=== PATIENT | female | born 1985 | race American Indian/Alaskan Native ===

== ENCOUNTER 2017-04-08 20:15 | Emergency (ER) | payer SELFPAY ==
[2017-04-08 22:33] LABS: Bilirubin,Urine NEG (Negative); Blood,Urine SM (Negative); Color,Urine Yellow (Yellow); Granular Casts,Urine 5 /LPF; Mucus,Urine FEW /HPF; Nitrite,Urine NEG (Negative); Urobilinogen,Urine < 2.0 mg/dL (<2.0)
[2017-04-08 22:41] LABS: HCG Qualitative,Urine Negative (Negative)
--- NOTE | 2017-04-09 03:11 | XRay Report ---
FINAL REPORT EXAM: XR CHEST ROUTINE 2V HISTORY: cough, congestion, rib pain TECHNIQUE: PA and lateral views of the chest were submitted. FINDINGS: The heart size and mediastinum appear normal. The lungs are clear. Pleural fluid is not seen. The bones and soft tissues do not show any acute changes. IMPRESSION: No active chest disease.
--- NOTE | 2017-04-09 05:51 | Emergency Department Report ---
Minor Respiratory - HPI Chief Complaint: Upper Respiratory Infection Stated Complaint: FLU SX Time Seen by Provider: 04/09/17 05:24 Duration: 4 Days Severity: mild Minor Respiratory: Yes Rhinorrhea, Yes Sore Throat, Yes Able to Tolerate Fluids , Yes Cough, Yes Sick Contacts, Yes Fever (102.0 yesterday per patient), No Ear Pain, No Hemoptysis, No Chest Pain, No Shortness of Breath Other History: This is a 31 y.o. female that presents with cough, congestion, nausea, vomiting, diarrhea, and muscle aches for 4 days. Patient states nausea, vomiting, and diarrhea stopped yesterday. 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 She took her temperature yesterday and it was 102.0, which prompted her to come for evaluation. She is taking dayquil and tylenol for symptom with some improvement. She is a former smoker. She quit smoking 3 months ago and felt great until 4 days ago. She denies headache, chest pain, SOB , and weight loss. ED Review of Systems ROS: Stated complaint: FLU SX Other details as noted in HPI Constitutional: see HPI, chills, fever, malaise. denies: diaphoresis, weakness ENT: throat pain, congestion. denies: ear pain, dental pain, hearing loss, epistaxis Respiratory: no symptoms reported, cough. denies: orthopnea, shortness of breath, SOB with exertion, SOB at rest, stridor, wheezing Cardiovascular: denies: chest pain, palpitations, syncope Gastrointestinal: as per HPI. denies: abdominal pain, vomiting, diarrhea Neurological: denies: headache, weakness, paresthesias ED Past Medical Hx - Past Medical History Previous Medical History?: No - Surgical History Past Surgical History?: No - Social History Smoking Status: Current Some Day Smoker Substance Use Type: Alcohol - Medications Home Medications: Home Medications Medication Instructions Recorded Confirmed Last Taken Type Benzonatate 200 mg PO TID PRN #30 capsule 04/09/17 Unknown Rx Cetirizine HCl [Zyrtec] 10 mg PO DAILY #30 tablet 04/09/17 Unknown Rx Ibuprofen 800 mg PO Q6H PRN #20 tablet 04/09/17 Unknown Rx Minor Respiratory Exam - Exam General: Vital signs noted. No distress. Alert and acting appropriately. HEENT: Yes Pharyngeal Erythema, Yes Moist Mucous Membranes, Yes Rhinorrhea ( turbinates pale and swollen, clear discharge), No Pharyngeal Exudates, No Conjuctival Injection, No Frontal Tenderness, No Maxillary Tenderness Ear: Neither TM Bulge, Neither TM Erythema, Neither EAC Pain, Neither EAC Discharge Neck: Yes Supple, No Adenopathy Lungs: Yes Good Air Exchange, Yes Cough, No Wheezes, No Ronchi, No Stridor, No Labored Respirations, No Retractions, No Use of Accessory Muscles, No Other Abnormal Lung Sounds Heart: Yes Regular, No Murmur Abdomen: Yes Normal Bowel Sounds, No Tenderness, No Peritoneal Signs Skin: No Rash, No Edema Neurologic: Alert and oriented, no deficits. Musculoskeletal: Unremarkable. ED Course Vital Signs 04/08/17 21:01 Temperature 99.4 F Pulse Rate 95 H Blood Pressure 122/80 O2 Sat by Pulse 96 Oximetry ED Medical Decision Making - Radiology Data Radiology results: image reviewed CXR Impression: No active chest disease. - Medical Decision Making This is a 31 y.o. female presents with cough, sore throat, body aches, fever, and congestion for 4 days. She is taking NSAID's and OTC cold and flu medicine with improvement of symptoms. CXR IMPRESSION: No active chest disease. Labs obtained, negative HCG and normal UA. Susceptible of upper respiratory infection. Encouraged to do supportive therapy at home. Patient agreed with ER plan of care. Discharged home with benzonatate, ceterizine, and ibuprofen. F/U with PCP. Critical care attestation.: If time is entered above; I have spent that time in minutes in the direct care of this critically ill patient, excluding procedure time. ED Disposition Clinical Impression: Upper respiratory infection Qualifiers: URI type: acute nasopharyngitis (common cold) Qualified Code(s): J00 - Acute nasopharyngitis [common cold] Disposition: - TO HOME OR SELFCARE Is pt being admited?: No Does the pt Need Aspirin: No Condition: Stable Instructions: Upper Respiratory Infection (ED), Cold Symptoms (ED) Additional Instructions: Increase fluid intake and rest. Wash hands frequently. Continue taking tylenol or ibuprofen to control fever. F/U with Primary Care Provider. Return to ER if fever, SOB, or difficulty breathing after 48 hours of supportive care. Prescriptions: Benzonatate 200 mg PO TID PRN #30 capsule PRN Reason: Cough Cetirizine HCl [Zyrtec] 10 mg PO DAILY #30 tablet Ibuprofen 800 mg PO Q6H PRN #20 tablet PRN Reason: Pain Referrals: [facility] [Outside] - 3-5 Days [facility] [Outside] - 3-5 Days [facility] [Outside] - 3-5 Days Forms: Work/School Release Form(ED) Time of Disposition: 06:02 Print Language: [place]
[2017-04-09 05:59] VITALS: BP 128/79
== END 2017-04-09 06:07 | disposition home or self-care (01) ==
LOC: ED 20:15
DX: J00 Acute nasopharyngitis [common cold] (principal); R11.2 Nausea with vomiting, unspecified; R19.7 Diarrhea, unspecified; F17.200 Nicotine dependence, unspecified, uncomplicated
CPT/HCPCS: 71046; 81001; 81025

== ENCOUNTER 2020-11-01 17:27 | Emergency (ER) | payer SELFPAY ==
[2020-11-01] MEDS ORDERED: AZITHROMYCIN/NS 500 MG/250 ML 500 MG/250 ML BAG IV ONE (17:51)
[2020-11-01] MEDS ORDERED: cefTRIAXone/NS 1 GM/50 ML 1 GM/50 ML BAG IV ONE (17:51)
--- NOTE | 2020-11-01 18:11 | Emergency Department Report ---
ED Shortness of Breath HPI - General Chief Complaint: Dyspnea/Respdistress Stated Complaint: DIFFICULTY BREATHING Time Seen by Provider: 11/01/20 17:44 Source: patient Mode of arrival: Stretcher Limitations: No Limitations - History of Present Illness Initial Comments: Chief complaint: Shortness of breath HPI: This is a 35-year-old female with history of diabetes mellitus and severe obesity BMI 51 who presents with chest pain shortness of breath right leg pain. Patient woke up this morning with generalized malaise and body aches. She developed sudden chest pain sharp central. She also had shortness of breath. She denies cough, fever. She does endorse loss of taste or smell. Her job required Covid testing. She had a negative rapid test today. No known sick contacts. EMS was called. Oxygen saturation 71% on room air. Patient was in o bvious respiratory distress. Patient has hypoxia 87% in spite nonrebreather mask. Patient has right calf pain. 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 Patient is not vaccinated against COVID-19 Patient denies any chance of . MD Complaint: shortness of breath, chest pain -: Sudden, This afternoon Severity: severe Pain Scale: 10 Quality: sharp Consistency: constant Improves With: nothing Worsens With: nothing Associated Symptoms: chest pain, other (Body aches, right calf pain, loss of taste and smell.) - Related Data Previous Rx's Medication Instructions Recorded Last Taken Type Benzonatate 200 mg PO TID PRN #30 capsule 04/09/17 Unknown Rx Cetirizine HCl [Zyrtec 10mg tab] 10 mg PO DAILY #30 tablet 04/09/17 Unknown Rx Ibuprofen [Ibuprofen 800] 800 mg PO Q6H PRN #20 tablet 04/09/17 Unknown Rx Allergies Allergy/AdvReac Type Severity Reaction Status Date / Time No Known Allergies Allergy Verified 11/01/20 19:55 ED Review of Systems ROS: Stated complaint: DIFFICULTY BREATHING Other details as noted in HPI Comment: All other systems reviewed and negative Constitutional: malaise. denies: chills, fever ENT: denies: ear pain Respiratory: shortness of breath. denies: cough, wheezing Cardiovascular: chest pain Gastrointestinal: denies: abdominal pain, nausea, vomiting, diarrhea Musculoskeletal: myalgia Skin: denies: rash, lesions Neurological: headache ED Past Medical Hx - Past Medical History Previous Medical History?: Yes Hx Diabetes: Yes - Surgical History Past Surgical History?: No - Family History Family history: diabetes, hypertension - Social History Smoking Status: Current Some Day Smoker Substance Use Type: Alcohol - Medications Home Medications: Home Medications Medication Instructions Recorded Confirmed Last Taken Type Benzonatate 200 mg PO TID PRN #30 capsule 04/09/17 Unknown Rx Cetirizine HCl [Zyrtec 10mg tab] 10 mg PO DAILY #30 tablet 04/09/17 Unknown Rx Ibuprofen [Ibuprofen 800] 800 mg PO Q6H PRN #20 tablet 04/09/17 Unknown Rx ED Physical Exam - General Limitations: No Limitations General appearance: alert, in distress, other (Severe respiratory distress accessory muscle use breathing 40 breaths/min) - Head Head exam: Present: atraumatic, normocephalic - Eye Eye exam: Present: normal appearance - ENT ENT exam: Present: mucous membranes moist - Neck Neck exam: Present: normal inspection, full ROM - Respiratory Respiratory exam: Present: respiratory distress, accessory muscle use, decreased breath sounds. Absent: wheezes, rales, rhonchi, prolonged expiratory - Cardiovascular Cardiovascular Exam: Present: normal rhythm, tachycardia, normal heart sounds. Absent: systolic murmur, diastolic murmur, rubs, gallop - GI/Abdominal GI/Abdominal exam: Present: soft. Absent: distended, tenderness, guarding, rebound - Extremities Exam Extremities exam: Present: normal inspection. Absent: pedal edema - Expanded Lower Extremity Exam Right Upper Leg exam: Present: normal inspection, full ROM Knee exam: Present: normal inspection, full ROM Lower Leg exam: Present: normal inspection, full ROM Ankle exam: Present: normal inspection, full ROM Foot/Toe exam: Present: normal inspection, full ROM Neuro vascular tendon exam: Present: no vascular compromise - Back Exam Back exam: Present: normal inspection - Neurological Exam Neurological exam: Present: alert, oriented X3 - Psychiatric Psychiatric exam: Present: normal affect, anxious - Skin Skin exam: Present: warm, dry, intact, normal color. Absent: rash ED Course Vital Signs 11/01/20 11/01/20 11/01/20 17:34 17:44 18:00 Temperature 97.9 F Pulse Rate 122 H 133 H 129 H Respiratory 32 H 40 H Rate Blood Pressure Blood Pressure 126/82 150/89 [Right] O2 Sat by Pulse 97 85 Oximetry 11/01/20 11/01/20 11/01/20 18:02 18:05 18:25 Temperature 98.0 F Pulse Rate 129 H 130 H Respiratory 40 H 36 H 27 H Rate Blood Pressure 150/89 122/79 Blood Pressure [Right] O2 Sat by Pulse 87 93 92 Oximetry - Reevaluation(s) Reevaluation #1: 11/01/20 18:11 Respiratory therapist for me that patient had difficulty tolerating BiPAP. I coached patient extensively. I help adjust the mask with respiratory therapist assistance. Patient's oxygenation 94% with FiO2 100%, IPAP 18 EPAP 8 Reevaluation #2: 11/01/20 18:33 I spoke with property technician. He will immediately take patient to CT scanner with assistance of respiratory therapist once chemistry is available. He did inquire about patient's status. Reevaluation #3: 11/01/20 18:35 I spoke with nurse at the bedside. Patient ordered Ativan and ketorolac for comfort sedation pain control. Patient is tolerating BiPAP with oxygen saturation 93%. Reevaluation #4: 11/01/20 19:57 Patient became increasingly agitated. He was unable to tolerate BiPAP. 79% on nonrebreather. I informed patient that she will be intubated placed on mechanical ventilation. I asked her which Nesacaine that we should contact. She told us her sister. She was able to unlock her cell phone to provide a phone number. Entire nursing team at the bedside. My physician colleague at the bedside for assistance. Anticipated difficult airway considering severe obesity. Patient was placed in ramped position with sheets under shoulders and in the head. 11/01/20 20:02 Versed ordered for sedation. Propofol ordered for sedation. Restraints in place. Reevaluation #5: 11/01/20 20:11 Repeat oxygen saturation 95% FiO2 100% on ventilator. Awaiting CT scan. - Consultations Consultation #1: 11/01/20 20:33 I was informed by charge nurse that patient did not have a pulse. Patient received ACLS resuscitation for PEA. Patient had developed bradycardia then no pulse. Patient received 6 doses of epinephrine, 1 dose of calcium bicarbonate, 1 dose calcium chloride. 18 minutes of resuscitation attempt with chest compressions, patient pronounced at 2030., Consultation #2: 11/01/20 20:36 I informed family members over phone. Spoke with sister [phone] - Intubation Time Out Performed: Yes Sedative: Etomidate Mg Given: 20 Paralytic: Succinylcholine Mg Given: 200 Laryngoscope: Windy Size: 4 ET Tube Size: 7.5 Tube Secured Depth (cm): 23 Tube Secured Location: teeth Tube Placement Confirmation: visualized tube passing t Patient Tolerated Procedure: well Intubation Complications: hypoxia Additional Comments: After intubation, hypoxia persisted 20%. Patient was ventilated with PEEP valve. With upright positioning and ETT adjustment, patient's oxygenation improved. I reaffirmed with video laryngoscope that ETT was in the trachea. ED Medical Decision Making - Lab Data Result diagrams: 11/01/20 18:09 11/01/20 18:09 - EKG Data -: EKG Interpreted by Me EKG shows normal: sinus rhythm, intervals Rate: tachycardia - EKG Data Interpretation: nonspecific ST-T wave floridalma 11/01/20 18:14 EKG obtained 1751 EKG interpreted by me Sinus tachycardia rate 130 bpm right axis deviation diffuse nonspecific T wave abnormality no ST elevation - Radiology Data Radiology results: report reviewed [facility] [address] [place] [address] Vascular Lab Report Signed Patient: PRINCESS TADEO DOUGLAS MR# : [id number] : 1985 Acct:[id number] Age/Sex: 35 / F ADM Date: 11/01/20 Loc: ED Attending Dr: Ordering Physician: Zahira Valles MD Date of Service: 11/01/20 Procedure(s): VL venous duplex [facility] Accession Number(s): [id number] cc: Zahira Valles MD DUPLEX DOPPLER LOWER EXTREMITY VEINS, BILATERAL INDICATION / CLINICAL INFORMATION: Right leg pain chest pain hypoxia. TECHNIQUE: Duplex doppler imaging was performed through the veins of both lower extremities using venous compression and other maneuvers. COMPARISON: None available. FINDINGS: Examination is limited due to patient's large body habitus. RIGHT COMMON FEMORAL VEIN: Negative. RIGHT FEMORAL VEIN: Negative. RIGHT POPLITEAL VEIN: Negative. RIGHT CALF VEINS: Negative. LEFT COMMON FEMORAL VEIN: Negative. LEFT FEMORAL VEIN: Lack of compression with possible thrombus. LEFT POPLITEAL VEIN: Negative. LEFT CALF VEINS: Negative. ADDITIONAL FINDINGS: None. IMPRESSION: 1. Possible DVT in the left femoral vein. Signer Name: Fahad Alves MD Signed: 11/01/2020 7:45 PM Workstation Name: [id number] Transcribed By: DT Dictated By: Solis Alves MD Electronically Authenticated By: Solis Alves MD Signed Date/Time: 11/01/201944 DD/ 42 TD/TT: [address] [address] XRay Report Signed Patient: PRINCESS TADEO DOUGLAS MR# : [id number] : 1985 Acct:[id number] Age/Sex: 35 / F ADM Date: 11/01/20 Loc: ED Attending Dr: Ordering Physician: Zahira Valles MD Date of Service: 11/01/20 Procedure(s): XR chest 1V ap Accession Number(s): [id number] cc: Zahira Valles MD Fluoro Time In Minutes: XR chest 1V ap INDICATION / CLINICAL INFORMATION: shortness of breath chest pain COMPARISON: 04/09/2017 FINDINGS: SUPPORT DEVICES: None. HEART / MEDIASTINUM: No significant abnormality. LUNGS / PLEURA: Low lung volumes. Lungs are clear. Costophrenic sulci are sharp. No pneumothorax. ADDITIONAL FINDINGS: No significant additional findings. IMPRESSION: 1. No acute findings. Signer Name: Isaias Mays MD Signed: 11/01/2020 6:19 PM Workstation Name: [id number] Transcribed By: Dictated By: Isaias Mays MD Electronically Authenticated By: Isaias Mays MD Signed Date/Time: 11/01/201818 DD/ 13 TD/TT: [address] [address] XRay Report Signed Patient: PRINCESS TADEO DOUGLAS MR# : [id number] : 1985 Acct:[id number] Age/Sex: 35 / F ADM Date: 11/01/20 Loc: ED Attending Dr: Ordering Physician: YUSEF DUMONT MD Date of Service: 11/01/20 Procedure(s): XR chest 1V ap Accession Number(s): [id number] cc: YUSEF DUMONT MD Fluoro Time In Minutes: CHEST 1 VIEW 11/01/2020 8:03 PM INDICATION / CLINICAL INFORMATION: post intubation. COMPARISON: 11/01/20 6:06 PM FINDINGS: SUPPORT DEVICES: Endotracheal tube has been placed with the tip 3.7 cm above the terell. HEART / MEDIASTINUM: No significant abnormality. LUNGS / PLEURA: Suboptimal inspiration with low lung volumes and right lung base atelectasis. No pneumothorax. ADDITIONAL FINDINGS: No significant additional findings. IMPRESSION: 1. Endotracheal tube in expected position. Signer Name: Fahad Alves MD Signed: 11/01/2020 8:28 PM Workstation Name: [id number] Transcribed By: DT Dictated By: Solis Alves MD Electronically Authenticated By: Solis Alves MD Signed Date/Time: 11/01/202027 - Medical Decision Making 1. Acute respiratory failure hypoxia: Differential diagnosis includes pulmonary embolism, COVID-19. 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 2. Lactic acidosis attributed to patient's Metformin use, no fever or hypotension. Ceftriaxone azithromycin initiated upon arrival according sepsis protocol with tachycardia hypoxia I spoke with sister in person. Also spoke with mom time family friend. Patient has had bilateral leg pain for at least 1 month. Initially attributed to sciatica and lumbar degenerative disc disease. Time of the 2030 Critical Care Time: Yes Critical care time in (mins) excluding proc time.: 70 Critical care attestation.: If time is entered above; I have spent that time in minutes in the direct care of this critically ill patient, excluding procedure time. 40 minutes of critical care time excluding procedures were used in the care of the patient. I came immediately to the bedside upon patient's arrival. Charge nurse informing that patient was in severe respiratory distress. I obtained history from EMS at the bedside. I immediately requested noninvasive positive pressure ventilation by respiratory therapist. I provided extensive education regarding patient's diagnosis. I discussed treatment plan with the nursing team members. I reviewed electronic record. I was concerned for the possibility of imminent airway compromise. Patient required multiple interventions and reassessments. ED Disposition Clinical Impression: Acute respiratory failure with hypoxia, Cardiac arrest Disposition: 20 Is pt being admited?: No Does the pt Need Aspirin: No Time of Disposition: 20:31
[2020-11-01] MEDS ORDERED: LORazepam 2 MG/ML VIAL IV ONE (18:14)
[2020-11-01] MEDS ORDERED: KETOROLAC 30 MG/1 ML INJ IV ONE (18:15)
--- NOTE | 2020-11-01 18:23 | XRay Report ---
XR chest 1V ap INDICATION / CLINICAL INFORMATION: shortness of breath chest pain COMPARISON: 04/09/2017 FINDINGS: SUPPORT DEVICES: None. HEART / MEDIASTINUM: No significant abnormality. LUNGS / PLEURA: Low lung volumes. Lungs are clear. Costophrenic sulci are sharp. No pneumothorax. ADDITIONAL FINDINGS: No significant additional findings. IMPRESSION: 1. No acute findings. Signer Name: Isaias Mays MD Signed: 11/01/2020 6:19 PM Workstation Name: [id number]
[2020-11-01 18:37] LABS: Hematocrit 46.9 % (30.3-42.9); Hemoglobin 15.1 gm/dl (10.1-14.3); Mean Corpuscular HGB Conc 32 % (30-34); Mean Corpuscular Volume 82 fl (79-97); Red Cell Distribution Width 16.5 % (13.2-15.2)
[2020-11-01 18:40] LABS: Platelet Count 225 K/mm3 (140-440)
[2020-11-01] MEDS ORDERED: SODIUM CHLORIDE 0.9% 1000 ML 1,000 ML IV ONE (18:43)
[2020-11-01 18:47] LABS: C-Reactive Protein 4.7 mg/dL (0.00-1.30)
[2020-11-01 18:51] LABS: Alanine Aminotransferase 39 units/L (7-56); Albumin 3.9 g/dL (3.9-5); BUN/Creatinine Ratio 9; Blood Urea Nitrogen 10 mg/dL (7-17); Calcium 9.6 mg/dL (8.4-10.2); Hemolysis Index 3
--- NOTE | 2020-11-01 19:49 | Vascular Lab Report ---
DUPLEX DOPPLER LOWER EXTREMITY VEINS, BILATERAL INDICATION / CLINICAL INFORMATION: Right leg pain chest pain hypoxia. TECHNIQUE: Duplex doppler imaging was performed through the veins of both lower extremities using adalberto ous compression and other maneuvers. COMPARISON: None available. FINDINGS: Examination is limited due to patient's large body habitus. RIGHT COMMON FEMORAL VEIN: Negative. RIGHT FEMORAL VEIN: Negative. RIGHT POPLITEAL VEIN: Negative. RIGHT CALF VEINS: Negative. LEFT COMMON FEMORAL VEIN: Negative. LEFT FEMORAL VEIN: Lack of compression with possible thrombus. LEFT POPLITEAL VEIN: Negative. LEFT CALF VEINS: Negative. ADDITIONAL FINDINGS: None. IMPRESSION: 1. Possible DVT in the left femoral vein. Signer Name: Fahad Alves MD Signed: 11/01/2020 7:45 PM Workstation Name: [id number]
[2020-11-01] MEDS ORDERED: SUCCINYLCHOLINE CHLORIDE 200 MG/10 ML INJ MDV IV ONE (20:02)
[2020-11-01] MEDS ORDERED: ETOMIDATE 20 MG/10 ML INJ IV ONE ×2 (20:02→22:08)
[2020-11-01] MEDS ORDERED: LIP THERAPY VASELINE TP PRN (20:03)
[2020-11-01] MEDS ORDERED: MINERAL OIL/PETROLATUM, WHITE OPHTH OINT 3.5 GM OU PRN (20:03)
--- NOTE | 2020-11-01 20:33 | XRay Report ---
CHEST 1 VIEW 11/01/2020 8:03 PM INDICATION / CLINICAL INFORMATION: post intubation. COMPARISON: 11/01/20 6:06 PM FINDINGS: SUPPORT DEVICES: Endotracheal tube has been placed with the tip 3.7 cm above the terell. HEART / MEDIASTINUM: No significant abnormality. LUNGS / PLEURA: Suboptimal inspiration with low lung volumes and right lung base atelectasis. No pneu mothorax. ADDITIONAL FINDINGS: No significant additional findings. IMPRESSION: 1. Endotracheal tube in expected position. Signer Name: Fahad Alves MD Signed: 11/01/2020 8:28 PM Workstation Name: [id number]
[2020-11-01] MEDS ORDERED: MIDAZOLAM 5 MG/5 ML INJ MDV IV NR (21:00)
[2020-11-01] MEDS ORDERED: SENNOSIDES/DOCUSATE SODIUM 8.6/50 MG TAB FEEDTUBE SCH (22:00)
[2020-11-01] MEDS ORDERED: FAMOTIDINE 20 MG/2 ML INJ IV SCH (22:00)
[2020-11-01] MEDS ORDERED: SUCCINYLCHOLINE CHLORIDE 200 MG/10 ML INJ MDV ONE (22:08)
[2020-11-01] MEDS ORDERED: MIDAZOLAM 5 MG/5 ML INJ MDV IV ONE (22:08)
[2020-11-02 07:59] VITALS: BP 167/127
== END 2020-11-02 04:55 ==
LOC: ED 17:27
DX: I46.9 Cardiac arrest, cause unspecified (principal); J96.01 Acute respiratory failure with hypoxia; F17.200 Nicotine dependence, unspecified, uncomplicated; E11.9 Type 2 diabetes mellitus without complications; Z79.899 Other long term (current) drug therapy
CPT/HCPCS: 31500; 36415; 71045; 80053; 82140; 82728; 82947; 83615; 83880; 84145; 84484; 85025; 85379; 86140; 87040; 93970; 96365; 96367; 99285; J0330; J0456; J0696; J1885; J2060; J2250; J2704; J7030; 93005